=== PATIENT | female | born 1980 | race Caucasian/White ===

== ENCOUNTER 2017-01-01 11:16 | Emergency (ER) | payer OTHER ==
[2017-01-01 11:26] VITALS: TEMP 98; BMI 39.5
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
[2017-01-01] MEDS ORDERED: methylPREDNISolone NA SUCC 125 MG/2 ML VIAL IVPB ONE (12:09)
[2017-01-01] MEDS ORDERED: SODIUM CHLORIDE 1,000 ML IV STA (12:09)
[2017-01-01] MEDS ORDERED: methylPREDNISolone NA SUCC 125 MG/2 ML VIAL ONE (12:11)
[2017-01-01 12:34] LABS: BASOPHIL 0.2 % (0-2.0); EOSINOPHIL 1.3 % (0-4.5); MCH 27.6 pg (25.7-33.7); MCHC 32.8 g/dl (32.0-36.0); MEAN CELL VOLUME 84.1 fl (80-96); MEAN PLT VOLUME 7.7 fl (7.5-11.1); NEUTROPHILS 67.8 % (42.8-82.8); PLATELET COUNT 304 K/MM3 (134-434); RDW 13.8 % (11.6-15.6); WHITE BLOOD COUNT 11.8 K/mm3 (4.0-10.0)
[2017-01-01 13:10] LABS: ALBUMIN 3.2 g/dl (3.4-5.0); ANION GAP 5 (8-16); BILIRUBIN,TOTAL 0.3 mg/dL (0.2-1.0); CALCIUM 8.8 mg/dL (8.5-10.1); CO2 28 mmol/L (21-32); CREATININE 0.7 mg/dL (0.55-1.02); GLUCOSE,RANDOM 91 mg/dL (74-106); SGOT/AST 15 U/L (15-37); SGPT/ALT 20 U/L (12-78); TOT PROT 6.8 g/dl (6.4-8.2)
[2017-01-01 13:13] LABS: ALK PHOS 89 U/L (45-117)
[2017-01-01 14:38] VITALS: BP 110/62; PULSE 64
== END 2017-01-01 15:02 | disposition home or self-care (01) ==
LOC: JER 11:16
PROC: 3E033NZ Introduction of Analgesics, Hypnotics, Sedatives into Peripheral Vein, Percutaneous Approach (ICD-10-PCS; principal; 2017-01-01)
PROC: 3E033GC Introduction of Other Therapeutic Substance into Peripheral Vein, Percutaneous Approach (ICD-10-PCS; 2017-01-01)
PROC: 3E0337Z Introduction of Electrolytic and Water Balance Substance into Peripheral Vein, Percutaneous Approach (ICD-10-PCS; 2017-01-01)
DX: T78.40XA Allergy, unspecified, initial encounter (principal); X58.XXXA Exposure to other specified factors, initial encounter; J45.909 Unspecified asthma, uncomplicated; G40.909 Epilepsy, unspecified, not intractable, without status epilepticus; Z86.69 Personal history of other diseases of the nervous system and sense organs; Z91.013 Allergy to seafood; D64.9 Anemia, unspecified; F17.211 Nicotine dependence, cigarettes, in remission
CPT/HCPCS: 36415; 80053; 84702; 85025; 96361; 96374; 96375; 99282-25

== ENCOUNTER 2017-09-27 13:37 | Emergency (ER) | payer OTHER | END 2017-09-27 20:01 | disposition home or self-care (01) | LOC: JER 13:37 | PROC: 3E0333Z Introduction of Anti-inflammatory into Peripheral Vein, Percutaneous Approach (ICD-10-PCS; principal; 2017-09-27) | CPT/HCPCS: 36415; 74177-TC; 80053; 81003; 81015; 83735; 84100; 84703; 85025; 87086; 96374; 99283-25 ==

== ENCOUNTER 2018-12-12 10:09 | Emergency (ER) | payer OTHER ==
[2018-12-12 10:27] VITALS: BP 112/66; PULSE 87; TEMP 98.1; BMI 44.1
[2018-12-12] MEDS ORDERED: KETOROLAC TROMETHAMINE 60 MG/2 ML VIAL IM ONE (10:51)
[2018-12-12] MEDS ORDERED: KETOROLAC TROMETHAMINE 60 MG/2 ML VIAL ONE (10:55)
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
== END 2018-12-12 10:58 | disposition home or self-care (01) ==
LOC: JERFT 10:09
PROC: 3E0233Z Introduction of Anti-inflammatory into Muscle, Percutaneous Approach (ICD-10-PCS; principal; 2018-12-12)
DX: S39.012A Strain of muscle, fascia and tendon of lower back, initial encounter (principal); S16.1XXA Strain of muscle, fascia and tendon at neck level, initial encounter; S89.81XA Other specified injuries of right lower leg, initial encounter; V49.19XA Passenger injured in collision with other motor vehicles in nontraffic accident, initial encounter; Y92.414 Local residential or business street as the place of occurrence of the external cause; Y93.89 Activity, other specified; Y99.8 Other external cause status
CPT/HCPCS: 99282-25

== ENCOUNTER 2018-12-19 09:49 | Emergency (ER) | payer OTHER ==
[2018-12-19 09:53] VITALS: BP 154/82; PULSE 84; TEMP 98.3; BMI 44.1
[2018-12-19] MEDS ORDERED: KETOROLAC TROMETHAMINE 60 MG/2 ML VIAL IM ONE (10:25)
[2018-12-19] MEDS ORDERED: METHOCARBAMOL 500 MG TABLET PO ONE (10:25)
[2018-12-19] MEDS ORDERED: METHOCARBAMOL 500 MG TABLET ONE (10:32)
[2018-12-19] MEDS ORDERED: KETOROLAC TROMETHAMINE 60 MG/2 ML VIAL ONE (10:32)
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
== END 2018-12-19 11:44 | disposition home or self-care (01) ==
LOC: JERFT 09:49
PROC: 3E0233Z Introduction of Anti-inflammatory into Muscle, Percutaneous Approach (ICD-10-PCS; principal; 2018-12-19)
DX: M54.41 Lumbago with sciatica, right side (principal); G89.29 Other chronic pain; V43.52XA Car driver injured in collision with other type car in traffic accident, initial encounter; Y93.89 Activity, other specified; Y92.410 Unspecified street and highway as the place of occurrence of the external cause
CPT/HCPCS: 72100-TC-FY; 99282-25

== ENCOUNTER 2019-01-18 20:20 | Emergency (ER) | payer OTHER ==
[2019-01-18 20:31] VITALS: BP 99/71; PULSE 66; TEMP 98.5; BMI 44.1
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
--- NOTE | 2019-01-18 21:28 | PDOC ---
History of Present Illness - General Chief Complaint: Pain, Acute Stated Complaint: LT KNEE PAIN Time Seen by Provider: 01/18/19 20:28 - History of Present Illness Initial Comments: 01/18/19 21:26 38-year-old female with left knee pain she's on a narcotic pain medication and anti-inflammatory as well as a muscle relaxer presents for evaluation of a re- exacerbation of left knee pain without any precipitating traumatic event. Past History - Past Medical History Allergies/Adverse Reactions: Allergies Allergy/AdvReac Type Severity Reaction Status Date / Time shellfish derived Allergy Severe Hives Verified 01/18/19 20:31 Home Medications: Ambulatory Orders Cyclobenzaprine HCl [Flexeril 10 mg] 10 mg PO BID PRN 12/12/18 Cyclobenzaprine HCl [Flexeril 10 mg] 10 mg PO TID #9 tablet 12/12/18 Gabapentin [Neurontin -] 300 mg PO Q8H 12/12/18 Ibuprofen [Motrin -] 800 mg PO Q6H #30 tablet 12/12/18 Meloxicam [Mobic] 15 mg PO ASDIR 12/12/18 Tizanidine HCl [Zanaflex] 4 mg PO ASDIR 12/12/18 Ketorolac Tromethamine [Toradol] 10 mg PO Q6H PRN #28 tablet 12/19/18 Lidocaine 5% Patch [Lidoderm -] 1 patch TP DAILY #30 patch 12/19/18 Methocarbamol [Robaxin -] 750 mg PO Q8H PRN #20 tablet 12/19/18 Anemia: Yes Asthma: Yes Cancer: No Cardiac Disorders: No CVA: No COPD: No CHF: No Dementia: No Diabetes: No GI Disorders: No Disorders: No HTN: No Hypercholesterolemia: No Liver Disease: No Seizures: Yes (last one 2011) Thyroid Disease: No - Surgical History Abdominal Surgery: Yes (fibroids) Appendectomy: No Cardiac Surgery: No Cholecystectomy: Yes (07/14/2015) Lung Surgery: No Neurologic Surgery: No Orthopedic Surgery: Yes (miniscus repair L knee 2015, L3-L5 herniaectomy 2015) - Reproductive History (#): 4 Para: 4 - Immunization History Immunization Up to Date: Yes - Suicide/Smoking/Psychosocial Hx Smoking History: Current every day smoker Have you smoked in the past 12 months: Yes Number of Cigarettes Smoked Daily: 6 If you are a former smoker, when did you quit?: 07/2016 Information on smoking cessation initiated: No 'Breaking Loose' booklet given: 06/19/16 Hx Alcohol Use: No Drug/Substance Use Hx: No Substance Use Type: None Hx Substance Use Treatment: No Review of Systems - Review of Systems Constitutional: No: Fever Musculoskeletal: Yes: Joint Pain *Physical Exam - Vital Signs Last Vital Signs Temp Pulse Resp BP Pulse Ox 98.5 F 66 20 99/71 100 01/18/19 20:29 01/18/19 20:29 01/18/19 20:29 01/18/19 20:29 01/18/19 20:29 - Physical Exam Comments: 01/18/19 21:26 Knee skin color and temperature are normal. There is no palpable effusion. Range of motion is full and nonpainful. No lateral joint line tenderness.+MJLT No patellofemoral crepitation. No evidence of instability. Thigh and calf are soft and nontender. There are no gross sensory motor deficits. Medical Decision Making - Medical Decision Making 01/18/19 21:27 Has a known medial meniscal tear she is being seen by a local orthopedist and has follow-up in 4 days. We'll give her crutches nonweightbearing or weight- bearing as tolerated with f/u instructions *DC/Admit/Observation/Transfer Diagnosis at time of Disposition: Left knee pain Qualifiers: Chronicity: acute Qualified Code(s): M25.562 - Pain in left knee - Discharge Dispostion Disposition: HOME Condition at time of disposition: Stable Decision to Admit order: No - Referrals Referrals: Santi Toribio [Primary Care Provider] - Dionte Todd MD [Staff Physician] - - Patient Instructions Additional Instructions: Return to the emergency room for worsening symptoms. Follow-up with orthopedic surgery as scheduled. Weight-bear as tolerated with crutches - Post Discharge Activity
== END 2019-01-18 21:34 | disposition home or self-care (01) ==
LOC: JERFT 20:20
DX: J45.909 Unspecified asthma, uncomplicated (principal)
CPT/HCPCS: 99282-25

== ENCOUNTER 2019-02-01 15:19 | Emergency (ER) | payer OTHER ==
[2019-02-01] MEDS ORDERED: ALBUTEROL SO4 2.5/IPRATROPIUM 0.5 INH SOL 3 ML VIAL.NEB. NEB ONE ×4 (15:29→16:11)
--- NOTE | 2019-02-01 15:29 | PDOC ---
Rapid Medical Evaluation Chief Complaint: Asthma Time Seen by Provider: 02/01/19 15:28 Medical Evaluation: Allergies Allergy/AdvReac Type Severity Reaction Status Date / Time shellfish derived Allergy Severe Hives Verified 01/18/19 20:31 02/01/19 15:28 I have performed a brief in-person evaluation of this patient. The patient presents with a chief complaint of: Pertinent physical exam findings:stable and in NAD, non-focal I have ordered the following: duoneb The patient will proceed to the ED for further evaluation.
[2019-02-01 15:30] VITALS: BMI 44.1
[2019-02-01] MEDS ORDERED: DEXAMETHASONE LIQUID 0.5 MG/5 ML PO ONE (15:59)
[2019-02-01] MEDS ORDERED: DEXAMETHASONE SOD PHOSPHATE 10 MG/1 ML VIAL ONE (16:01)
--- NOTE | 2019-02-01 16:05 | PDOC ---
History of Present Illness - General Chief Complaint: Asthma Stated Complaint: ASTHMA Time Seen by Provider: 02/01/19 15:28 - History of Present Illness Initial Comments: 02/01/19 16:00 38 Old female with a past medical history significant for asthma presents for evaluation of asthma exacerbation times 2 days w/o systemic symptoms Past History - Past Medical History Allergies/Adverse Reactions: Allergies Allergy/AdvReac Type Severity Reaction Status Date / Time shellfish derived Allergy Severe Hives Verified 02/01/19 15:30 Home Medications: Ambulatory Orders Cyclobenzaprine HCl [Flexeril 10 mg] 10 mg PO BID PRN 12/12/18 Cyclobenzaprine HCl [Flexeril 10 mg] 10 mg PO TID #9 tablet 12/12/18 Gabapentin [Neurontin -] 300 mg PO Q8H 12/12/18 Ibuprofen [Motrin -] 800 mg PO Q6H #30 tablet 12/12/18 Meloxicam [Mobic] 15 mg PO ASDIR 12/12/18 Tizanidine HCl [Zanaflex] 4 mg PO ASDIR 12/12/18 Ketorolac Tromethamine [Toradol] 10 mg PO Q6H PRN #28 tablet 12/19/18 Lidocaine 5% Patch [Lidoderm -] 1 patch TP DAILY #30 patch 12/19/18 Methocarbamol [Robaxin -] 750 mg PO Q8H PRN #20 tablet 12/19/18 Anemia: Yes Asthma: Yes Cancer: No Cardiac Disorders: No CVA: No COPD: No CHF: No Dementia: No Diabetes: No GI Disorders: No Disorders: No HTN: No Hypercholesterolemia: No Liver Disease: No Seizures: Yes (last one 2011) Thyroid Disease: No - Surgical History Abdominal Surgery: Yes (fibroids) Appendectomy: No Cardiac Surgery: No Cholecystectomy: Yes (07/14/2015) Lung Surgery: No Neurologic Surgery: No Orthopedic Surgery: Yes (miniscus repair L knee 2015, L3-L5 herniaectomy 2015) - Reproductive History (#): 4 Para: 4 - Immunization History Immunization Up to Date: Yes - Suicide/Smoking/Psychosocial Hx Smoking History: Never smoked Have you smoked in the past 12 months: Yes Number of Cigarettes Smoked Daily: 6 If you are a former smoker, when did you quit?: 07/2016 'Breaking Loose' booklet given: 06/19/16 Hx Alcohol Use: No Drug/Substance Use Hx: No Substance Use Type: None Hx Substance Use Treatment: No Review of Systems - Review of Systems Respiratory: Yes: Cough, Wheezing *Physical Exam - Vital Signs Last Vital Signs Temp Pulse Resp BP Pulse Ox 98.5 F 99 H 26 H 119/74 100 02/01/19 15:27 02/01/19 15:27 02/01/19 15:27 02/01/19 15:27 02/01/19 15:27 - Physical Exam Comments: 02/01/19 16:01 HEAD: NC/AT EYES: Conjuntiva clear Ears: Canals and TM's normal NOSE: No d/c THROAT: Moist mucous membrances, oral pharanx clear, uvula midline NECK: Supple without adenopathy CARDIAC: S1 S2 LUNGS: decreased Sounds at the bases with mild wheezing diffusly ABDOMEN: Soft NT ND MS: Full ROM in all joints without edema NEUROLOGIC: No gross sensory or motor deficits, NVID SKIN: Normal color and temperature no lesions or rashes ED Treatment Course - Medications Given in the ED: ED Medications Discontinued Medications Generic Name Dose Route Start Last Admin Trade Name Freq PRN Reason Stop Dose Admin Albuterol/Ipratropium 1 amp 02/01/19 15:29 02/01/19 15:35 Duoneb - NEB 02/01/19 15:30 1 amp ONCE ONE Administration Medical Decision Making - Medical Decision Making 02/01/19 16:59 CTA after duo nebs and decadron, will have pt f/u with pulmonology *DC/Admit/Observation/Transfer Diagnosis at time of Disposition: Asthma exacerbation - Discharge Dispostion Disposition: HOME Condition at time of disposition: Stable Decision to Admit order: No - Referrals Referrals: Santi Toribio [Primary Care Provider] - Santi Neri MD, MD [Staff Physician] - - Patient Instructions Additional Instructions: Return to the emergency room for worsening symptoms. Please follow-up with pulmonology in one to 2 days without fail for further evaluation and treatment options. Continue with your regular asthma medication at home. - Post Discharge Activity
[2019-02-01] MEDS: ALBUTEROL SO4 2.5/IPRATROPIUM 0.5 INH SOL 3 ML VIAL.NEB. NEB SCH ×3 (16:07→16:49)
[2019-02-01 17:05] VITALS: BP 131/66; PULSE 95; TEMP 98.1
== END 2019-02-01 17:10 | disposition home or self-care (01) ==
LOC: JERFT 15:19
PROC: 3E0F7GC Introduction of Other Therapeutic Substance into Respiratory Tract, Via Natural or Artificial Opening (ICD-10-PCS; principal; 2019-02-01)
PROC: 3E0F7GC Introduction of Other Therapeutic Substance into Respiratory Tract, Via Natural or Artificial Opening (ICD-10-PCS; 2019-02-01)
DX: J45.901 Unspecified asthma with (acute) exacerbation (principal)
CPT/HCPCS: 99281-25

== ENCOUNTER 2019-03-01 05:22 | Day surgery (SDC) | payer OTHER ==
[2019-02-28 11:24] VITALS: BMI 45.4
--- NOTE | 2019-03-01 08:20 | HP ---
[facility]ellite [facility] - Chief Complaint Chief Complaint: left knee pain - Past Medical History Allergies/Adverse Reactions: Allergies Allergy/AdvReac Type Severity Reaction Status Date / Time shellfish derived Allergy Severe Hives Verified 02/28/19 11:31 No Known Drug Allergies Allergy Verified 02/28/19 11:31 Pulmonary: Yes: Asthma ...LMP: 02/27/19 - Current Medications Current Medications: Home Medications Medication Instructions Recorded Albuterol 0.083% Nebulizer Cortney 1 neb NEB PRN PRN 02/28/19 [Ventolin 0.083% Nebulizer Soln -] Albuterol Sulfate Inhaler - 1 - 2 inh PO PRN PRN 02/28/19 [Ventolin HFA Inhaler -] Mv-Mn/Iron/Folic Acid/Herb 190 1 each PO WEEKLY 02/28/19 [Vitamin D3 Complete Caplet] Hydrocodone/Acetaminophen 1 each PO Q6H #20 tablet MDD 4 03/01/19 [Hydrocodone-Acetamin 5-325 mg] Satellite Physical Exam - Physical Examination General Appearance: Well Nourished, Well Developed, Alert & Oriented x3 ENT: Clear Lung: Normal air movement Heart: Regular rate & rhythm Extremities: Other (left knee- + swelling, + ttp, dec rom , + mcmurrays, nvi, MRi + mt) Neurological: Intact, Alert, Oriented Satellite Impression/Plan - Impression/Plan Impression: left knee internal derangement Operative Procedure: left knee arthroscopy Date to be Performed: 03/01/19
[2019-03-01] MEDS ORDERED: ONDANSETRON 4 MG/2 ML VIAL IVPUSH PRN (11:44)
[2019-03-01] MEDS ORDERED: oxyCODONE HCL 5 MG TABLET PO PRN ×2 (11:44)
[2019-03-01] MEDS ORDERED: LACTATED RINGERS SOLUTION 1,000 ML IV SCH (11:45)
[2019-03-01] MEDS ORDERED: ceFAZolin SODIUM 1 GM VIAL IVPB ONE (14:00)
--- NOTE | 2019-03-01 14:40 | OP ---
Operative Note - Note: Operative Date: 03/01/19 Pre-Operative Diagnosis: left knee lateral meniscus tear Operation: left knee arthroscopy, lateral meniscectomy, debridement chondroplasty Post-Operative Diagnosis: Same as Pre-op Surgeon: Dionte Todd Anesthesiologist/FILLER IN: Johanna Troy Anesthesia: General, Local Specimens Removed: shavings Estimated Blood Loss (mls): 0 Drains, Volume Out (mls): 0 Blood Volume Replaced (mls): 0 Fluid Volume Replaced (mls): 500 Operative Report Dictated: Yes
[2019-03-01] MEDS ORDERED: BUPIVACAINE HCL/PF 0.5% (5 MG/ML) 30 ML VIAL IJ ONE (15:30)
[2019-03-01] MEDS ORDERED: ACETAMINOPHEN 1000 MG/100 ML VIAL (NON FORMULARY) IVPB ONE ×2 (15:30→15:33)
[2019-03-01] MEDS ORDERED: oxyCODONE HCL 5 MG TABLET ONE (16:13)
[2019-03-01] MEDS ORDERED: oxyCODONE HCL 5 MG TABLET PO ONE (16:15)
[2019-03-01 16:25] VITALS: TEMP 98
[2019-03-01 17:41] VITALS: BP 100/65; PULSE 65
--- NOTE | 2019-03-01 22:08 | OP ---
DATE OF OPERATION: 03/01/2019 PREOPERATIVE DIAGNOSES: Left knee pain, lateral meniscus tear. POSTOPERATIVE DIAGNOSES: Left knee pain, lateral meniscus tear, hypertrophic fat pad. PROCEDURE: Left knee arthroscopy, partial lateral meniscectomy, and debridement chondroplasty. SURGEON: Dontae Gutierrez MD ASSISTANTS: None. ANESTHESIOLOGIST: Johanna Sanderson, REF-CRN ANESTHESIA: LMA, local injection of 20 mL of 0.5% Marcaine. DRAINS: None. COMPLICATIONS: None. SPECIMEN: Shavings. BLOOD GIVEN: None. FLUID REPLACEMENT: Plasma-Lyte 500 mL. BLOOD LOSS: None. COMPLICATIONS: None. This patient is a 38-year-old female with a preoperative diagnosis of left knee pain, lateral meniscus tear, and possible osteoarthritis. After understanding the potential risks, complications, alternatives, and benefits of surgery versus nonsurgical treatment, the patient elected to undergo this procedure. The patient was brought to the operating room. Peripheral IV placed and IV sedation given. Next, 3 g of IV Ancef were given as the patient was 290 pounds. Ample padding was placed on the left thigh including a Styrofoam ring. Left lower extremity was prepped and draped in sterile fashion, elevated, exsanguinated with an Esmarch bandage. Tourniquet inflated to 300 mmHg. A superomedial outflow portal was established. A lateral portal was established and arthroscope introduced into the joint under direct visualization using a spinal needle and medial portal was established. The patient's medial compartment looked good. There was no osteoarthritis, and the medial meniscus looked good. Photographs were taken. In the intercondylar notch, the ACL looked good, but the patient had a tremendous amount of synovitis and hypertrophic fat pad. This was debrided with a curved shaver. Next, the lateral compartment was directly visualized. The patient's lateral meniscus was seen to have multiple degenerative-type, small radial tears in the body and posterior horn. This was debrided with the curved shaver. Photographs were taken before, during, and after. The lateral femoral condyle and lateral tibial plateau both looked good and free of osteoarthritis. There were some small areas of grade 1 chondromalacia of the lateral tibial plateau. Next, our attention turned to the patellofemoral joint. The patient had additional excessive hypertrophic, somewhat fibrotic, Hoffa fat pad. This was debrided. I could then directly visualize the patellofemoral joint. There were some notching and small craters in the femoral trochlea but overall looked good and the patella looked good. Then, the area was copiously irrigated and washed out. All excess saline and debris were removed. The arthroscopy portals were closed with 3-0 nylon sutures; 20 mL of 0.5% Marcaine were introduced into the joint. The area was then washed and dried, covered with Xeroform gauze, 4 x 4 gauze, Webril, and two 6-inch Rashad bandages. The tourniquet was taken down after total tourniquet time of 13 minutes. There were no complications during the case. The patient tolerated the procedure quite well and was brought to the ambulatory recovery room in stable condition. DONTAE GUTIERREZ M.D. [id number]
--- NOTE | 2019-03-03 19:02 | PATH ---
Surgical Pathology Report Patient Name: BENNIE LIANG Med. Rec. #: [id number] /Age/Gender: 1980 (Age: 38) / F Account: [id number] Location: [facility] SURGICAL Taken: 03/01/2019 Received: 03/02/2019 Reported: 03/03/2019 Physicians: Dionte Todd M.D. Specimen(s) Received LEFT KNEE SHAVINGS Clinical History Left knee tear Final Diagnosis KNEE SHAVINGS, LEFT, ARTHROSCOPY: FRAGMENTS OF CARTILAGE, DENSE FIBROCONNECTIVE TISSUE, ADIPOSE TISSUE, AND SYNOVIUM. Electronically Signed Millicent Gallo M.D. Gross Description Received in formalin, labeled "left knee shavings," is a 2 x 1 x 0.3 cm. aggregate of younger-yellow soft tissue fragments. A sales training representative portion is submitted in one cassette. MLSZ/03/02/2019 [email or web address]/03/02/2019
== END 2019-03-01 17:30 | disposition home or self-care (01) ==
LOC: JASU-SURG 05:22
PROVIDERS: ATTEND Orthopaedic Surgery
PROC: 0SBD4ZZ Excision of Left Knee Joint, Percutaneous Endoscopic Approach (ICD-10-PCS; 2019-03-01)
PROC: 0SBD4ZZ Excision of Left Knee Joint, Percutaneous Endoscopic Approach (ICD-10-PCS; principal; 2019-03-01 11:30)
DX: S83.282A Other tear of lateral meniscus, current injury, left knee, initial encounter (principal); M25.562 Pain in left knee; M79.4 Hypertrophy of (infrapatellar) fat pad; M22.42 Chondromalacia patellae, left knee; X58.XXXA Exposure to other specified factors, initial encounter; Y93.9 Activity, unspecified; Y92.9 Unspecified place or not applicable
CPT/HCPCS: 29881; G0289; 84703; 88304-TC; 94760; J0131

== ENCOUNTER 2021-04-30 00:57 | Inpatient (IN) | payer OTHER ==
[2021-04-30] MEDS ORDERED: methylPREDNISolone NA SUCC 125 MG/2 ML VIAL ONE (01:13)
[2021-04-30 01:14] VITALS: BMI 43.8
[2021-04-30] MEDS ORDERED: MAGNESIUM SULFATE IN WATER 2 GM/50 ML IVPB IVPB ONE (01:14)
[2021-04-30] MEDS ORDERED: MAGNESIUM SULF 50% (8.12 MEQ/2 ML-1 GM VIAL) IVPB ONE (01:16)
[2021-04-30] MEDS ORDERED: methylPREDNISolone NA SUCC 125 MG/2 ML VIAL IVPB ONE (01:16)
[2021-04-30] MEDS ORDERED: ALBUTEROL SO4 2.5/IPRATROPIUM 0.5 INH SOL 3 ML VIAL.NEB. NEB ONE ×3 (01:16→05:59)
[2021-04-30 02:33] LABS: HEMATOCRIT 36.5 % (32.4-45.2); HEMOGLOBIN 12.3 GM/dL (10.7-15.3); MCH 27.6 pg (25.7-33.7); MCHC 33.6 g/dl (32.0-36.0); MEAN CELL VOLUME 82.1 fl (80-96); MEAN PLT VOLUME 7.7 fl (7.5-11.1); PLATELET COUNT 309 10^3/uL (134-434); RBC 4.44 M/mm3 (3.60-5.2); RDW 14.1 % (11.6-15.6); WHITE BLOOD COUNT 14.3 K/mm3 (4.0-10.0)
[2021-04-30 02:45] LABS: INR 0.99 (0.83-1.09); PROTHROMBIN TIME (PATIENT) 11.6 SEC (9.7-13.0)
[2021-04-30] MEDS ORDERED: ALBUTEROL SO4 0.083% IH SOL 2.5 MG/3 ML VIAL.NEB. NEB ONE ×3 (02:48→08:16)
[2021-04-30 02:51] LABS: CHLORIDE 109 mmol/L (98-107); SODIUM 142 mmol/L (136-145)
[2021-04-30 02:53] LABS: CALCIUM 8.5 mg/dL (8.5-10.1)
[2021-04-30 02:54] LABS: ANION GAP 12 MMOL/L (8-16); CO2 21 mmol/L (21-32); GLUCOSE,RANDOM 129 mg/dL (74-106); MAGNESIUM 2.3 mg/dL (1.8-2.4)
[2021-04-30 02:57] LABS: CREATININE 0.9 mg/dL (0.55-1.3); SGOT/AST 14 U/L (15-37); SGPT/ALT 19 U/L (13-61)
[2021-04-30 02:58] LABS: BILIRUBIN,TOTAL 0.2 mg/dL (0.2-1)
[2021-04-30 02:59] LABS: TOT PROT 6.4 g/dl (6.4-8.2)
[2021-04-30 03:00] LABS: ALK PHOS 98 U/L (45-117)
[2021-04-30] MEDS: ALBUTEROL SO4 0.083% IH SOL 2.5 MG/3 ML VIAL.NEB. NEB SCH ×2 (03:15→04:00)
[2021-04-30] MEDS ORDERED: POLYETHYLENE GLYCOL (HEALTHYLAX) 3350 17 GM PACKET PO PRN (04:02)
[2021-04-30] MEDS ORDERED: ALBUTEROL SO4 0.083% IH SOL 2.5 MG/3 ML VIAL.NEB. NEB PRN ×2 (04:02→06:20)
[2021-04-30] MEDS: ENOXAPARIN NA (PORCINE) 40 MG/0.4 ML DISP.SYRIN SQ SCH (09:35)
[2021-04-30] MEDS: PANTOPRAZOLE 40 MG TABLET PO SCH (09:35)
[2021-04-30] MEDS: ACETAMINOPHEN 325 MG TABLET (FP) PO PRN ×2 (15:24→21:43)
[2021-04-30] MEDS: ALBUTEROL SO4 2.5/IPRATROPIUM 0.5 INH SOL 3 ML VIAL.NEB. NEB SCH ×2 (16:55→20:45)
[2021-04-30] MEDS: methylPREDNISolone NA SUCC 40 MG/1 ML VIAL IVPUSH SCH (18:19)
[2021-04-30] MEDS: MONTELUKAST NA 10 MG TABLET PO SCH (21:38)
[2021-05-01] MEDS: methylPREDNISolone NA SUCC 40 MG/1 ML VIAL IVPUSH SCH ×3 (01:11→17:02)
[2021-05-01] MEDS ORDERED: KETOROLAC TROMETHAMINE 30 MG/1 ML VIAL IM ONE (01:19)
[2021-05-01 08:48] LABS: HEMATOCRIT 37.9 % (32.4-45.2); HEMOGLOBIN 12.4 GM/dL (10.7-15.3); MCH 27.8 pg (25.7-33.7); MCHC 32.7 g/dl (32.0-36.0); MEAN CELL VOLUME 84.8 fl (80-96); MEAN PLT VOLUME 8.2 fl (7.5-11.1); PLATELET COUNT 352 10^3/uL (134-434); RBC 4.47 M/mm3 (3.60-5.2); RDW 14.3 % (11.6-15.6); WHITE BLOOD COUNT 27.4 K/mm3 (4.0-10.0)
[2021-05-01] MEDS: ALBUTEROL SO4 2.5/IPRATROPIUM 0.5 INH SOL 3 ML VIAL.NEB. NEB SCH ×4 (09:00→20:40)
[2021-05-01] MEDS: PANTOPRAZOLE 40 MG TABLET PO SCH (09:13)
[2021-05-01] MEDS: ENOXAPARIN NA (PORCINE) 40 MG/0.4 ML DISP.SYRIN SQ SCH (09:13)
[2021-05-01 09:21] LABS: BLOOD UREA NITROGEN 9.6 mg/dL (7-18)
[2021-05-01 09:24] LABS: CREATININE 0.7 mg/dL (0.55-1.3)
[2021-05-01] MEDS: MONTELUKAST NA 10 MG TABLET PO SCH (21:31)
[2021-05-02] MEDS: methylPREDNISolone NA SUCC 40 MG/1 ML VIAL IVPUSH SCH ×2 (01:49→10:51)
[2021-05-02 07:07] VITALS: BP 109/53; TEMP 98.2
[2021-05-02] MEDS: ALBUTEROL SO4 2.5/IPRATROPIUM 0.5 INH SOL 3 ML VIAL.NEB. NEB SCH ×2 (08:46→11:05)
[2021-05-02 08:57] LABS: HEMATOCRIT 36.6 % (32.4-45.2); HEMOGLOBIN 12.1 GM/dL (10.7-15.3); MCH 27.5 pg (25.7-33.7); MCHC 33.1 g/dl (32.0-36.0); MEAN CELL VOLUME 83.1 fl (80-96); MEAN PLT VOLUME 8.1 fl (7.5-11.1); PLATELET COUNT 328 10^3/uL (134-434); RBC 4.41 M/mm3 (3.60-5.2); RDW 14.6 % (11.6-15.6); WHITE BLOOD COUNT 22.7 K/mm3 (4.0-10.0)
[2021-05-02 09:23] LABS: CALCIUM 8.9 mg/dL (8.5-10.1)
[2021-05-02 09:24] LABS: ALBUMIN 3.2 g/dl (3.4-5.0); BLOOD UREA NITROGEN 14.4 mg/dL (7-18)
[2021-05-02 09:27] LABS: CREATININE 0.7 mg/dL (0.55-1.3)
[2021-05-02 09:28] LABS: BILIRUBIN,TOTAL 0.2 mg/dL (0.2-1)
[2021-05-02 09:29] LABS: TOT PROT 6.7 g/dl (6.4-8.2)
[2021-05-02] MEDS: PANTOPRAZOLE 40 MG TABLET PO SCH (10:51)
[2021-05-02] MEDS: ENOXAPARIN NA (PORCINE) 40 MG/0.4 ML DISP.SYRIN SQ SCH (10:52)
[2021-05-02 11:40] VITALS: PULSE 82
[2021-05-02 11:43] LABS: ANISOCYTOSIS 1+; MACROCYTOSIS 0; PLATELET ESTIMATE NORMAL; TOXIC GRANULATION 1+
[2021-05-02] MEDS ORDERED: predniSONE 20 MG TABLET (UD) PO SCH (12:45)
== END 2021-05-02 15:05 | disposition home or self-care (01) | DRG 141 ==
LOC: JER 00:57 → JERBED 01:13 → J7W 09:06
PROVIDERS: ATTEND Family Medicine
DX: J45.41 Moderate persistent asthma with (acute) exacerbation (principal); E66.01 Morbid (severe) obesity due to excess calories; Z68.42 Body mass index [BMI] 45.0-49.9, adult
CPT/HCPCS: 36415; 71045-TC-FY; 80048; 80053; 83735; 84484; 84703; 85025; 85027; 85610; 93005; 93010; 94150; 94640; 94761; 99291; C9803; U0003; U0005

== ENCOUNTER 2021-10-15 10:31 | Inpatient (IN) | payer OTHER ==
[2021-10-15] MEDS ORDERED: ALBUTEROL SO4 2.5/IPRATROPIUM 0.5 INH SOL 3 ML VIAL.NEB. NEB ONE ×5 (11:10→21:07)
[2021-10-15] MEDS ORDERED: methylPREDNISolone NA SUCC 125 MG/2 ML VIAL ONE (11:19)
[2021-10-15 11:33] LABS: BASO % 0.4 % (0-2.0); HEMOGLOBIN 12.6 GM/dL (10.7-15.3); LYMPH % 12.9 % (8-40); MCH 27.2 pg (25.7-33.7); MCHC 33.3 g/dl (32.0-36.0); MEAN CELL VOLUME 81.7 fl (80-96); MEAN PLT VOLUME 7.2 fl (7.5-11.1); MONO % 3.4 % (3.8-10.2); NEUT % 81.3 % (42.8-82.8); PLATELET COUNT 309 10^3/uL (134-434); RBC 4.65 M/mm3 (3.60-5.2); RDW 14.6 % (11.6-15.6); WHITE BLOOD COUNT 15.1 K/mm3 (4.0-10.0)
[2021-10-15] MEDS ORDERED: methylPREDNISolone NA SUCC 125 MG/2 ML VIAL IVPUSH ONE (11:33)
[2021-10-15] MEDS ORDERED: MAGNESIUM SULF 50% (8.12 MEQ/2 ML-1 GM VIAL) IVPB ONE (11:34)
[2021-10-15] MEDS ORDERED: MAGNESIUM SULFATE IN WATER 2 GM/50 ML IVPB IVPB ONE (11:39)
[2021-10-15 11:56] LABS: CALCIUM 8.8 mg/dL (8.5-10.1)
[2021-10-15 11:57] LABS: ALBUMIN 3.5 g/dl (3.4-5.0)
[2021-10-15 12:00] LABS: CREATININE 0.7 mg/dL (0.55-1.3)
[2021-10-15 12:02] LABS: BILIRUBIN,TOTAL 0.9 mg/dL (0.2-1); TOT PROT 6.9 g/dl (6.4-8.2)
[2021-10-15 12:10] LABS: VENOUS BASE EXCESS -1.7 mmol/L (-2-2); VENOUS O2 SATURATION 83.8 % (70-80); VENOUS PCO2 44.4 mmHg (38-52); VENOUS PH 7.352 (7.310-7.410)
[2021-10-15] MEDS ORDERED: methylPREDNISolone NA SUCC 40 MG/1 ML VIAL ONE ×2 (16:35→21:07)
[2021-10-15] MEDS: ALBUTEROL SO4 2.5/IPRATROPIUM 0.5 INH SOL 3 ML VIAL.NEB. NEB SCH ×2 (16:37→20:25)
[2021-10-15] MEDS: methylPREDNISolone NA SUCC 40 MG/1 ML VIAL IVPUSH SCH ×2 (16:37→20:25)
[2021-10-15] MEDS ORDERED: MONTELUKAST NA 10 MG TABLET ONE (22:50)
[2021-10-15] MEDS ORDERED: HEPARIN NA (PORCINE) 5,000 UNITS/ML 1ML VIAL ONE (22:50)
[2021-10-15] MEDS: HEPARIN NA (PORCINE) 5,000 UNITS/ML 1ML VIAL SQ SCH (22:56)
[2021-10-15] MEDS: MONTELUKAST NA 10 MG TABLET PO SCH (22:56)
[2021-10-16] MEDS: ACETAMINOPHEN 325 MG TABLET (FP) PO PRN ×2 (00:23→09:56)
[2021-10-16 00:57] VITALS: BMI 45.1
[2021-10-16] MEDS: methylPREDNISolone NA SUCC 40 MG/1 ML VIAL IVPUSH SCH ×4 (02:36→21:31)
[2021-10-16] MEDS: ALBUTEROL SO4 2.5/IPRATROPIUM 0.5 INH SOL 3 ML VIAL.NEB. NEB SCH ×4 (07:20→20:10)
[2021-10-16] MEDS: HEPARIN NA (PORCINE) 5,000 UNITS/ML 1ML VIAL SQ SCH ×2 (09:38→21:31)
[2021-10-16] MEDS: PANTOPRAZOLE 40 MG TABLET PO SCH (09:38)
[2021-10-16] MEDS ORDERED: ALBUTEROL SO4 0.083% IH SOL 2.5 MG/3 ML VIAL.NEB. NEB PRN (10:04)
[2021-10-16] MEDS ORDERED: FLUTICASONE/UMECLIDIN/VILANTER(200-62.5-25 TRELEGY ELLIPTA) INAHLER IH SCH (10:15)
[2021-10-16 10:21] LABS: HEMATOCRIT 38.3 % (32.4-45.2); HEMOGLOBIN 12.4 GM/dL (10.7-15.3); MCHC 32.4 g/dl (32.0-36.0); MEAN CELL VOLUME 83.3 fl (80-96); MEAN PLT VOLUME 8.2 fl (7.5-11.1); PLATELET COUNT 355 10^3/uL (134-434); RBC 4.59 M/mm3 (3.60-5.2); RDW 14.7 % (11.6-15.6); WHITE BLOOD COUNT 26.7 K/mm3 (4.0-10.0)
[2021-10-16 10:47] LABS: ALBUMIN 3.2 g/dl (3.4-5.0); BLOOD UREA NITROGEN 9.5 mg/dL (7-18); CALCIUM 8.8 mg/dL (8.5-10.1); MAGNESIUM 2.3 mg/dL (1.8-2.4)
[2021-10-16 10:50] LABS: CREATININE 0.9 mg/dL (0.55-1.3)
[2021-10-16 10:52] LABS: BILIRUBIN,TOTAL 0.3 mg/dL (0.2-1); TOT PROT 6.8 g/dl (6.4-8.2)
[2021-10-16 11:21] LABS: ANISOCYTOSIS 0; HELMET CELLS 0; HOWELL-JOLLY BODIES 0; MACROCYTOSIS 0; OVALOCYTE 0; ROULEAU 0; SICKELED CELLS 0; TARGET CELLS 0; TEAR DROP CELLS 0; TOXIC GRANULATION 0
[2021-10-16] MEDS: BUDESONIDE/FORMETEROL FUMARATE 160/4.5 mcg INHALER IH SCH ×2 (11:26→21:31)
[2021-10-16] MEDS: ACETAMINOPHEN/CAFFEINE/BUTALBITAL 1 TAB PO PRN (14:37)
[2021-10-16] MEDS: MONTELUKAST NA 10 MG TABLET PO SCH (21:31)
[2021-10-17] MEDS: ACETAMINOPHEN/CAFFEINE/BUTALBITAL 1 TAB PO PRN (00:58)
[2021-10-17] MEDS: methylPREDNISolone NA SUCC 40 MG/1 ML VIAL IVPUSH SCH ×4 (03:04→21:34)
[2021-10-17] MEDS: ALBUTEROL SO4 2.5/IPRATROPIUM 0.5 INH SOL 3 ML VIAL.NEB. NEB SCH ×4 (07:50→19:44)
[2021-10-17] MEDS: PANTOPRAZOLE 40 MG TABLET PO SCH (09:06)
[2021-10-17] MEDS: HEPARIN NA (PORCINE) 5,000 UNITS/ML 1ML VIAL SQ SCH ×2 (09:06→21:35)
[2021-10-17] MEDS: BUDESONIDE/FORMETEROL FUMARATE 160/4.5 mcg INHALER IH SCH ×2 (09:10→21:40)
[2021-10-17] MEDS: MONTELUKAST NA 10 MG TABLET PO SCH (21:34)
[2021-10-18] MEDS: methylPREDNISolone NA SUCC 40 MG/1 ML VIAL IVPUSH SCH ×4 (02:55→21:17)
[2021-10-18] MEDS: ALBUTEROL SO4 2.5/IPRATROPIUM 0.5 INH SOL 3 ML VIAL.NEB. NEB SCH ×4 (08:50→20:16)
[2021-10-18] MEDS: PANTOPRAZOLE 40 MG TABLET PO SCH (10:00)
[2021-10-18] MEDS: HEPARIN NA (PORCINE) 5,000 UNITS/ML 1ML VIAL SQ SCH ×2 (10:01→21:19)
[2021-10-18] MEDS: BUDESONIDE/FORMETEROL FUMARATE 160/4.5 mcg INHALER IH SCH ×2 (10:02→21:20)
[2021-10-18] MEDS: MONTELUKAST NA 10 MG TABLET PO SCH (21:20)
[2021-10-18] MEDS: ACETAMINOPHEN 325 MG TABLET (FP) PO PRN (21:26)
[2021-10-19] MEDS: methylPREDNISolone NA SUCC 40 MG/1 ML VIAL IVPUSH SCH ×3 (02:45→14:34)
[2021-10-19] MEDS: ALBUTEROL SO4 2.5/IPRATROPIUM 0.5 INH SOL 3 ML VIAL.NEB. NEB SCH ×3 (08:30→16:22)
[2021-10-19] MEDS: HEPARIN NA (PORCINE) 5,000 UNITS/ML 1ML VIAL SQ SCH (09:53)
[2021-10-19] MEDS: PANTOPRAZOLE 40 MG TABLET PO SCH (09:53)
[2021-10-19] MEDS: BUDESONIDE/FORMETEROL FUMARATE 160/4.5 mcg INHALER IH SCH (10:00)
[2021-10-19 10:40] LABS: HEMATOCRIT 39.3 % (32.4-45.2); HEMOGLOBIN 13.1 GM/dL (10.7-15.3); MCH 27.4 pg (25.7-33.7); MCHC 33.3 g/dl (32.0-36.0); MEAN CELL VOLUME 82.3 fl (80-96); MEAN PLT VOLUME 8.3 fl (7.5-11.1); PLATELET COUNT 287 10^3/uL (134-434); RBC 4.78 M/mm3 (3.60-5.2); RDW 14.3 % (11.6-15.6); WHITE BLOOD COUNT 19.2 K/mm3 (4.0-10.0)
[2021-10-19 11:22] LABS: ANISOCYTOSIS 3+; MACROCYTOSIS 0
[2021-10-19 12:21] VITALS: PULSE 66
[2021-10-19 13:57] VITALS: BP 137/73; TEMP 98.4
[2021-10-20] MEDS ORDERED: predniSONE 20 MG TABLET (UD) PO SCH (10:00)
== END 2021-10-19 16:52 | disposition home or self-care (01) | DRG 141 ==
LOC: JER 10:31 → JERBED 12:43 → J6S 23:53
PROVIDERS: ADMIT Family Medicine; ATTEND Family Medicine
DX: J45.901 Unspecified asthma with (acute) exacerbation (principal); E66.01 Morbid (severe) obesity due to excess calories; Z68.42 Body mass index [BMI] 45.0-49.9, adult; G43.909 Migraine, unspecified, not intractable, without status migrainosus; D72.829 Elevated white blood cell count, unspecified; G47.33 Obstructive sleep apnea (adult) (pediatric); R09.02 Hypoxemia
CPT/HCPCS: 0241U-QW; 36415; 71045-TC-FY; 80053; 82803; 83735; 84443; 85025; 94150; 94640; 99285-25; C9803-CS; J1644; U0003; U0005

== ENCOUNTER 2021-12-12 09:31 | Emergency (ER) | payer OTHER ==
[2021-12-12 09:47] VITALS: BP 113/62; PULSE 77; TEMP 98.6; BMI 45.3
[2021-12-12] MEDS ORDERED: diphenhydrAMINE HCL 25 MG CAPSULE (FP) PO ONE ×2 (09:57→10:19)
[2021-12-12] MEDS ORDERED: FAMOTIDINE 20 MG TABLET PO ONE (09:57)
[2021-12-12] MEDS ORDERED: predniSONE 20 MG TABLET (UD) PO ONE (09:57)
[2021-12-12] MEDS ORDERED: predniSONE 20 MG TABLET (UD) ONE (10:20)
[2021-12-12] MEDS ORDERED: FAMOTIDINE 20 MG TABLET ONE (10:20)
== END 2021-12-12 11:23 | disposition home or self-care (01) ==
LOC: JERFT 09:31
DX: H05.223 Edema of bilateral orbit (principal)
CPT/HCPCS: 99283-25

== ENCOUNTER 2022-01-17 12:56 | Observation (INO) | payer OTHER ==
[2022-01-17 13:08] VITALS: BMI 30.4
[2022-01-17] MEDS ORDERED: ASPIRIN 81 MG CHEWABLE TABLETS PO ONE (13:40)
[2022-01-17] MEDS ORDERED: ASPIRIN 81 MG CHEWABLE TABLETS ONE ×2 (13:46→13:49)
[2022-01-17] MEDS ORDERED: ACETAMINOPHEN 1000 MG/100 ML BAG IVPB ONE (15:10)
[2022-01-17 15:12] LABS: BASO % 0.2 % (0-2.0); EOS % 1.9 % (0-4.5); HEMOGLOBIN 12.4 GM/dL (10.7-15.3); LYMPH % 25.7 % (8-40); MCH 27.6 pg (25.7-33.7); MCHC 33.6 g/dl (32.0-36.0); MEAN CELL VOLUME 82.1 fl (80-96); MEAN PLT VOLUME 7.8 fl (7.5-11.1); MONO % 5.1 % (3.8-10.2); NEUT % 67.1 % (42.8-82.8); PLATELET COUNT 321 10^3/uL (134-434); RBC 4.51 M/mm3 (3.60-5.2); RDW 14.6 % (11.6-15.6); WHITE BLOOD COUNT 14.7 K/mm3 (4.0-10.0)
[2022-01-17] MEDS ORDERED: ACETAMINOPHEN INJECTION 100 ML IVPB ONE (15:17)
[2022-01-17 15:22] LABS: INR 1.03 (0.83-1.09); PROTHROMBIN TIME (PATIENT) 11.9 SEC (9.7-13.0)
[2022-01-17 15:24] LABS: ACTIVATED PTT 26.8 SECONDS (25.2-36.5); CALCIUM 8.4 mg/dL (8.5-10.1)
[2022-01-17 15:25] LABS: ALBUMIN 3.3 g/dl (3.4-5.0); BLOOD UREA NITROGEN 9.6 mg/dL (7-18); MAGNESIUM 2.1 mg/dL (1.8-2.4)
[2022-01-17 15:28] LABS: CREATININE 0.7 mg/dL (0.55-1.3)
[2022-01-17 15:29] LABS: BILIRUBIN,TOTAL 0.4 mg/dL (0.2-1); TOT PROT 6.6 g/dl (6.4-8.2)
[2022-01-17 15:33] LABS: N-TERMINAL BNP 21.6 pg/ml (5-125)
[2022-01-17] MEDS: BUDESONIDE/FORMETEROL FUMARATE 160/4.5 mcg INHALER IH SCH (21:45)
[2022-01-17] MEDS: HEPARIN NA (PORCINE) 5,000 UNITS/ML 1ML VIAL SQ SCH (21:46)
[2022-01-18] MEDS: HEPARIN NA (PORCINE) 5,000 UNITS/ML 1ML VIAL SQ SCH ×3 (06:34→22:08)
[2022-01-18 07:27] LABS: BASO % 0.3 % (0-2.0); EOS % 2.9 % (0-4.5); HEMATOCRIT 37.8 % (32.4-45.2); HEMOGLOBIN 12.6 GM/dL (10.7-15.3); LYMPH % 27.5 % (8-40); MCH 27.6 pg (25.7-33.7); MCHC 33.4 g/dl (32.0-36.0); MEAN CELL VOLUME 82.6 fl (80-96); MEAN PLT VOLUME 7.6 fl (7.5-11.1); MONO % 4.6 % (3.8-10.2); NEUT % 64.7 % (42.8-82.8); PLATELET COUNT 285 10^3/uL (134-434); RBC 4.57 M/mm3 (3.60-5.2); RDW 14.6 % (11.6-15.6); WHITE BLOOD COUNT 11.5 K/mm3 (4.0-10.0)
[2022-01-18 07:30] LABS: CALCIUM 8.1 mg/dL (8.5-10.1)
[2022-01-18 07:31] LABS: BLOOD UREA NITROGEN 8.4 mg/dL (7-18)
[2022-01-18 07:34] LABS: CREATININE 0.7 mg/dL (0.55-1.3)
[2022-01-18 07:35] LABS: TOT PROT 6.2 g/dl (6.4-8.2)
[2022-01-18 07:36] LABS: BILIRUBIN,TOTAL 0.2 mg/dL (0.2-1)
[2022-01-18] MEDS: BUDESONIDE/FORMETEROL FUMARATE 160/4.5 mcg INHALER IH SCH ×2 (09:44→22:10)
[2022-01-18] MEDS: PANTOPRAZOLE 40 MG TABLET PO SCH (09:44)
[2022-01-18] MEDS: ACETAMINOPHEN 325 MG TABLET (FP) PO PRN (12:39)
[2022-01-19] MEDS: HEPARIN NA (PORCINE) 5,000 UNITS/ML 1ML VIAL SQ SCH ×2 (06:20→14:22)
[2022-01-19 09:11] VITALS: RESP 18
[2022-01-19] MEDS: BUDESONIDE/FORMETEROL FUMARATE 160/4.5 mcg INHALER IH SCH (09:38)
[2022-01-19] MEDS: ACETAMINOPHEN 325 MG TABLET (FP) PO PRN (09:39)
[2022-01-19] MEDS: PANTOPRAZOLE 40 MG TABLET PO SCH (09:39)
[2022-01-19 18:27] VITALS: BP 160/106; PULSE 94; TEMP 98.7
[2022-01-19] MEDS ORDERED: ROSUVASTATIN CA 10 MG TABLET PO SCH (22:00)
== END 2022-01-19 19:29 | disposition home or self-care (01) ==
LOC: JER 12:56 → JERBED 17:41 → J4W 20:18
PROVIDERS: ADMIT Family Medicine; ATTEND Family Medicine
PROC: 3E033NZ Introduction of Analgesics, Hypnotics, Sedatives into Peripheral Vein, Percutaneous Approach (ICD-10-PCS; principal; 2022-01-17)
PROC: 3E023GC Introduction of Other Therapeutic Substance into Muscle, Percutaneous Approach (ICD-10-PCS; 2022-01-17)
DX: J45.909 Unspecified asthma, uncomplicated (principal); Z91.013 Allergy to seafood; E66.8 Other obesity; Z68.30 Body mass index [BMI] 30.0-30.9, adult; Z86.73 Personal history of transient ischemic attack (TIA), and cerebral infarction without residual deficits; G43.909 Migraine, unspecified, not intractable, without status migrainosus; Z90.49 Acquired absence of other specified parts of digestive tract; Z87.891 Personal history of nicotine dependence
CPT/HCPCS: 36415; 71046-TC-FY; 80053; 80061; 82550; 83036; 83735; 83880; 84484; 85025; 85379; 85610; 85730; 93005; 93010; 93351; 93971-TC; 96372; 96374; 99285-25; C9803-CS; G0378; J1644; U0003; U0005

== ENCOUNTER 2022-03-06 15:40 | Emergency (ER) | payer OTHER ==
[2022-03-06 16:07] VITALS: BP 91/63; PULSE 90; RESP 18; TEMP 98; BMI 46.3
== END 2022-03-06 16:47 | disposition home or self-care (01) ==
LOC: JERFT 15:40
DX: H60.392 Other infective otitis externa, left ear (principal); H92.02 Otalgia, left ear
CPT/HCPCS: 99281-25

== ENCOUNTER 2022-04-25 09:36 | Observation (INO) | payer OTHER ==
[2022-04-25] MEDS ORDERED: predniSONE 20 MG TABLET (UD) PO ONE (10:49)
[2022-04-25] MEDS ORDERED: SODIUM CHLORIDE 1,000 ML IV STA (10:50)
[2022-04-25] MEDS ORDERED: MAGNESIUM SULF 50% (8.12 MEQ/2 ML-1 GM VIAL) IVPB ONE (10:50)
[2022-04-25] MEDS ORDERED: ALBUTEROL SO4 2.5/IPRATROPIUM 0.5 INH SOL 3 ML VIAL.NEB. NEB ONE ×2 (11:26→23:27)
[2022-04-25] MEDS: ALBUTEROL SO4 2.5/IPRATROPIUM 0.5 INH SOL 3 ML VIAL.NEB. NEB SCH ×5 (11:38→23:41)
[2022-04-25] MEDS ORDERED: predniSONE 20 MG TABLET (UD) ONE (11:41)
[2022-04-25 11:51] LABS: BASO % 0.4 % (0-2.0); EOS % 1.5 % (0-4.5); HEMATOCRIT 40.3 % (32.4-45.2); HEMOGLOBIN 13.3 GM/dL (10.7-15.3); LYMPH % 26.8 % (8-40); MCH 27.3 pg (25.7-33.7); MEAN CELL VOLUME 82.8 fl (80-96); MEAN PLT VOLUME 7.5 fl (7.5-11.1); MONO % 5.9 % (3.8-10.2); NEUT % 65.4 % (42.8-82.8); PLATELET COUNT 274 10^3/uL (134-434); RBC 4.87 M/mm3 (3.60-5.2); RDW 14.4 % (11.6-15.6); WHITE BLOOD COUNT 8.9 K/mm3 (4.0-10.0)
[2022-04-25 12:08] LABS: CHLORIDE 104 mmol/L (98-107); SODIUM 141 mmol/L (136-145)
[2022-04-25 12:10] LABS: ALBUMIN 3.2 g/dl (3.4-5.0); ANION GAP 9 MMOL/L (8-16); BLOOD UREA NITROGEN 7.4 mg/dL (7-18); CALCIUM 8.6 mg/dL (8.5-10.1); CO2 28 mmol/L (21-32); GLUCOSE,RANDOM 85 mg/dL (74-106)
[2022-04-25 12:13] LABS: CREATININE 0.7 mg/dL (0.55-1.3); SGPT/ALT 28 U/L (13-61)
[2022-04-25 12:15] LABS: BILIRUBIN,TOTAL 0.4 mg/dL (0.2-1)
[2022-04-25 12:16] LABS: ALK PHOS 88 U/L (45-117)
[2022-04-25 12:23] LABS: SGOT/AST 45 U/L (15-37)
[2022-04-25] MEDS ORDERED: MAGNESIUM 1GM/D5W - 1 GM/100 ML IVPB IVPB ONE (12:36)
[2022-04-25] MEDS: ALBUTEROL SO4 0.083% IH SOL 2.5 MG/3 ML VIAL.NEB. NEB SCH ×2 (13:12→14:02)
[2022-04-25] MEDS ORDERED: diazePAM CARPU-JECT 10 MG/2 ML DISP.SYRIN ONE (13:29)
[2022-04-25] MEDS ORDERED: ALBUTEROL SO4 0.5 % INH SOLN 2.5 MG/0.5 ML VIAL.NEB. NEB PRN (13:39)
[2022-04-25] MEDS ORDERED: ACETAMINOPHEN 325 MG TABLET (FP) PO ONE (15:13)
[2022-04-25] MEDS ORDERED: ACETAMINOPHEN 325 MG TABLET (FP) ONE (15:19)
[2022-04-25] MEDS ORDERED: FAMOTIDINE 20 MG TABLET ONE (15:19)
[2022-04-25] MEDS: FAMOTIDINE 20 MG TABLET PO SCH (15:22)
[2022-04-25] MEDS: OSELTAMIVIR PHOSPHATE 75 MG CAPSULE PO SCH ×2 (15:23→23:41)
[2022-04-25] MEDS ORDERED: methylPREDNISolone NA SUCC 40 MG/1 ML VIAL ONE (23:27)
[2022-04-25] MEDS: methylPREDNISolone NA SUCC 40 MG/1 ML VIAL IVPUSH SCH (23:41)
[2022-04-26] MEDS: BUDESONIDE/FORMETEROL FUMARATE 160/4.5 mcg INHALER IH SCH ×3 (01:41→22:34)
[2022-04-26] MEDS: ALBUTEROL SO4 2.5/IPRATROPIUM 0.5 INH SOL 3 ML VIAL.NEB. NEB SCH ×4 (07:56→22:34)
[2022-04-26] MEDS ORDERED: ENOXAPARIN NA (PORCINE) 40 MG/0.4 ML DISP.SYRIN SQ ONE (10:37)
[2022-04-26] MEDS ORDERED: FAMOTIDINE 20 MG TABLET ONE (10:37)
[2022-04-26] MEDS ORDERED: methylPREDNISolone NA SUCC 40 MG/1 ML VIAL ONE ×2 (10:38→18:37)
[2022-04-26] MEDS: OSELTAMIVIR PHOSPHATE 75 MG CAPSULE PO SCH ×2 (10:56→22:34)
[2022-04-26] MEDS: FAMOTIDINE 20 MG TABLET PO SCH (10:56)
[2022-04-26] MEDS: methylPREDNISolone NA SUCC 40 MG/1 ML VIAL IVPUSH SCH ×3 (10:56→18:39)
[2022-04-26] MEDS: ENOXAPARIN NA (PORCINE) 40 MG/0.4 ML DISP.SYRIN SQ SCH (10:56)
[2022-04-26] MEDS ORDERED: ALBUTEROL SO4 2.5/IPRATROPIUM 0.5 INH SOL 3 ML VIAL.NEB. NEB ONE ×2 (18:37→22:14)
[2022-04-27] MEDS ORDERED: methylPREDNISolone NA SUCC 40 MG/1 ML VIAL ONE ×3 (03:20→17:40)
[2022-04-27] MEDS: methylPREDNISolone NA SUCC 40 MG/1 ML VIAL IVPUSH SCH ×3 (03:35→17:40)
[2022-04-27] MEDS: ALBUTEROL SO4 2.5/IPRATROPIUM 0.5 INH SOL 3 ML VIAL.NEB. NEB SCH ×4 (09:00→19:49)
[2022-04-27] MEDS ORDERED: ALBUTEROL SO4 2.5/IPRATROPIUM 0.5 INH SOL 3 ML VIAL.NEB. NEB ONE ×2 (09:23→13:15)
[2022-04-27] MEDS ORDERED: FAMOTIDINE 20 MG TABLET ONE (09:24)
[2022-04-27] MEDS ORDERED: OSELTAMIVIR PHOSPHATE 75 MG CAPSULE ONE (09:24)
[2022-04-27] MEDS ORDERED: ENOXAPARIN NA (PORCINE) 40 MG/0.4 ML DISP.SYRIN SQ ONE (09:24)
[2022-04-27] MEDS: BUDESONIDE/FORMETEROL FUMARATE 160/4.5 mcg INHALER IH SCH ×2 (10:10→21:40)
[2022-04-27] MEDS: FAMOTIDINE 20 MG TABLET PO SCH (10:10)
[2022-04-27] MEDS: OSELTAMIVIR PHOSPHATE 75 MG CAPSULE PO SCH ×2 (10:10→21:40)
[2022-04-27] MEDS: ENOXAPARIN NA (PORCINE) 40 MG/0.4 ML DISP.SYRIN SQ SCH (10:10)
[2022-04-27 19:43] VITALS: BMI 44.6
[2022-04-28] MEDS: methylPREDNISolone NA SUCC 40 MG/1 ML VIAL IVPUSH SCH ×2 (01:56→09:56)
[2022-04-28] MEDS: ALBUTEROL SO4 2.5/IPRATROPIUM 0.5 INH SOL 3 ML VIAL.NEB. NEB SCH ×2 (08:31→12:04)
[2022-04-28] MEDS: FAMOTIDINE 20 MG TABLET PO SCH (09:55)
[2022-04-28] MEDS: BUDESONIDE/FORMETEROL FUMARATE 160/4.5 mcg INHALER IH SCH (09:56)
[2022-04-28] MEDS: OSELTAMIVIR PHOSPHATE 75 MG CAPSULE PO SCH (09:56)
[2022-04-28] MEDS: ENOXAPARIN NA (PORCINE) 40 MG/0.4 ML DISP.SYRIN SQ SCH (09:58)
[2022-04-28 11:21] VITALS: BP 120/74; PULSE 63; RESP 20; TEMP 97.4
== END 2022-04-28 14:28 | disposition home or self-care (01) ==
LOC: JER 09:36 → INTOOBSV 13:25 → JERBED 13:25 → J6S 04-27 18:25
PROVIDERS: ADMIT Internal Medicine; ATTEND Internal Medicine
PROC: 3E0F7GC Introduction of Other Therapeutic Substance into Respiratory Tract, Via Natural or Artificial Opening (ICD-10-PCS; principal; 2022-04-25)
PROC: 3E023GC Introduction of Other Therapeutic Substance into Muscle, Percutaneous Approach (ICD-10-PCS; 2022-04-25)
PROC: 3E033GC Introduction of Other Therapeutic Substance into Peripheral Vein, Percutaneous Approach (ICD-10-PCS; 2022-04-25)
PROC: 3E0337Z Introduction of Electrolytic and Water Balance Substance into Peripheral Vein, Percutaneous Approach (ICD-10-PCS; 2022-04-25)
DX: J45.901 Unspecified asthma with (acute) exacerbation (principal); J10.1 Influenza due to other identified influenza virus with other respiratory manifestations; E66.01 Morbid (severe) obesity due to excess calories; Z68.41 Body mass index [BMI] 40.0-44.9, adult; Z91.013 Allergy to seafood; R06.00 Dyspnea, unspecified
CPT/HCPCS: 0241U-QW; 36415; 71046-TC-FY; 80053; 84484; 85025; 93005; 93010; 94640; 96361; 96372; 96374; 96375; 96376; 99291; G0378

== ENCOUNTER 2023-03-25 09:59 | Emergency (ER) | payer OTHER ==
[2023-03-25 10:09] VITALS: BP 139/73; PULSE 88; RESP 20; TEMP 98; BMI 44.4
[2023-03-25] MEDS ORDERED: DEXAMETHASONE SOD PHOSPHATE 10 MG/1 ML VIAL PO ONE (11:54)
[2023-03-25] MEDS ORDERED: IBUPROFEN 600 MG TABLET (FP) PO ONE ×2 (11:55→11:59)
[2023-03-25] MEDS ORDERED: DEXAMETHASONE SOD PHOSPHATE 10 MG/1 ML VIAL ONE (11:59)
[2023-03-25] MEDS ORDERED: ONDANSETRON *ODT* 4 MG TABLET ONE (12:00)
[2023-03-25] MEDS ORDERED: ONDANSETRON *ODT* 4 MG TABLET SL ONE (12:01)
== END 2023-03-25 12:35 | disposition home or self-care (01) ==
LOC: JERFT 09:59
PROC: 3E033GC Introduction of Other Therapeutic Substance into Peripheral Vein, Percutaneous Approach (ICD-10-PCS; principal; 2023-03-25)
DX: H92.03 Otalgia, bilateral (principal); R09.81 Nasal congestion; R51.9 Headache, unspecified; R59.0 Localized enlarged lymph nodes; J34.89 Other specified disorders of nose and nasal sinuses; H66.91 Otitis media, unspecified, right ear; H60.91 Unspecified otitis externa, right ear
CPT/HCPCS: 99284-25; J1100; Q0162

== ENCOUNTER 2023-04-27 11:02 | Inpatient (IN) | payer OTHER ==
[2023-04-27] MEDS ORDERED: ACETAMINOPHEN 1000 MG/100 ML BAG IVPB ONE (12:09)
[2023-04-27] MEDS ORDERED: SODIUM CHLORIDE 0.9% 500 ML INFUS.BAG IV ONE (12:09)
[2023-04-27] MEDS ORDERED: methylPREDNISolone NA SUCC 125 MG/2 ML VIAL IVPUSH ONE (12:09)
[2023-04-27] MEDS ORDERED: MAGNESIUM SULF 50% (8.12 MEQ/2 ML-1 GM VIAL) IVPB ONE (12:09)
[2023-04-27] MEDS: ALBUTEROL SO4 2.5/IPRATROPIUM 0.5 INH SOL 3 ML VIAL.NEB. NEB SCH ×5 (12:17→20:19)
[2023-04-27] MEDS ORDERED: ACETAMINOPHEN INJECTION 100 ML IVPB ONE (12:43)
[2023-04-27] MEDS ORDERED: methylPREDNISolone NA SUCC 125 MG/2 ML VIAL ONE (12:44)
[2023-04-27] MEDS ORDERED: MAGNESIUM SULFATE IN WATER 2 GM/50 ML IVPB IVPB ONE (12:44)
[2023-04-27 12:48] LABS: BASO % 0.6 % (0-2.0); EOS % 2.9 % (0-4.5); HEMATOCRIT 39.3 % (32.4-45.2); HEMOGLOBIN 12.8 GM/dL (10.7-15.3); LYMPH % 19.1 % (8-40); MCH 27.3 pg (25.7-33.7); MCHC 32.5 g/dl (32.0-36.0); MEAN CELL VOLUME 83.9 fl (80-96); MEAN PLT VOLUME 7.3 fl (7.5-11.1); MONO % 3.8 % (3.8-10.2); NEUT % 73.6 % (42.8-82.8); PLATELET COUNT 306 10^3/uL (134-434); RBC 4.69 M/mm3 (3.60-5.2); RDW 13.9 % (11.6-15.6); WHITE BLOOD COUNT 10.6 K/mm3 (4.0-10.0)
[2023-04-27 13:10] LABS: ALBUMIN 3.4 g/dl (3.4-5.0); BLOOD UREA NITROGEN 5.7 mg/dL (7-18); CALCIUM 8.6 mg/dL (8.5-10.1)
[2023-04-27 13:13] LABS: CREATININE 0.7 mg/dL (0.55-1.3)
[2023-04-27 13:14] LABS: BILIRUBIN,TOTAL 0.4 mg/dL (0.2-1)
[2023-04-27] MEDS: ALBUTEROL SO4 0.083% IH SOL 2.5 MG/3 ML VIAL.NEB. NEB SCH (15:46)
[2023-04-27] MEDS ORDERED: METOCLOPRAMIDE HCL INJECTION 10 MG/2 ML VIAL IVPUSH ONE (15:48)
[2023-04-27] MEDS ORDERED: METOCLOPRAMIDE HCL INJECTION 10 MG/2 ML VIAL ONE (16:05)
[2023-04-27] MEDS ORDERED: ACETAMINOPHEN 325 MG TABLET (FP) PO PRN (16:26)
[2023-04-27] MEDS ORDERED: ALBUTEROL SO4 0.083% IH SOL 2.5 MG/3 ML VIAL.NEB. NEB ONE (16:26)
[2023-04-27 18:02] VITALS: BMI 47.5
[2023-04-27] MEDS: methylPREDNISolone NA SUCC 40 MG/1 ML VIAL IVPUSH SCH (18:20)
[2023-04-27] MEDS ORDERED: FLU VACCINE (FLULAVAL) PF 60 MCG/0.5 ML SYRINGE 2023-2024 IM ONE (20:00)
[2023-04-27] MEDS ORDERED: CEFTRIAXONE 1 GM in DEXTROSE 5%-WATER - 50 ML IVPB ONE ×2 (22:53→22:56)
[2023-04-28] MEDS: methylPREDNISolone NA SUCC 40 MG/1 ML VIAL IVPUSH SCH ×3 (01:33→17:44)
[2023-04-28] MEDS: ALBUTEROL SO4 2.5/IPRATROPIUM 0.5 INH SOL 3 ML VIAL.NEB. NEB SCH ×4 (08:00→20:50)
[2023-04-28 09:41] LABS: HEMATOCRIT 37.9 % (32.4-45.2); HEMOGLOBIN 12.7 GM/dL (10.7-15.3); MCH 27.7 pg (25.7-33.7); MCHC 33.4 g/dl (32.0-36.0); MEAN CELL VOLUME 82.9 fl (80-96); MEAN PLT VOLUME 7.9 fl (7.5-11.1); PLATELET COUNT 365 10^3/uL (134-434); RBC 4.57 M/mm3 (3.60-5.2); RDW 13.8 % (11.6-15.6); WHITE BLOOD COUNT 19.3 K/mm3 (4.0-10.0)
[2023-04-28 10:06] LABS: POTASSIUM 4.4 mmol/L (3.5-5.1)
[2023-04-28] MEDS: AZITHROMYCIN IVPB 500 MG/250 ML BAG IVPB SCH (10:16)
[2023-04-28 10:58] LABS: BLOOD UREA NITROGEN 7.8 mg/dL (7-18); MAGNESIUM 2.2 mg/dL (1.8-2.4)
[2023-04-28 11:01] LABS: CREATININE 0.9 mg/dL (0.55-1.3)
[2023-04-28 12:13] LABS: ANISOCYTOSIS 2+; MACROCYTOSIS 0
[2023-04-28] MEDS: BUDESONIDE/FORMETEROL FUMARATE 160/4.5 mcg INHALER IH SCH (21:35)
[2023-04-29] MEDS: methylPREDNISolone NA SUCC 40 MG/1 ML VIAL IVPUSH SCH ×3 (01:30→18:10)
[2023-04-29] MEDS: ALBUTEROL SO4 2.5/IPRATROPIUM 0.5 INH SOL 3 ML VIAL.NEB. NEB SCH ×4 (07:15→20:47)
[2023-04-29] MEDS: AZITHROMYCIN IVPB 500 MG/250 ML BAG IVPB SCH (09:16)
[2023-04-29] MEDS: BUDESONIDE/FORMETEROL FUMARATE 160/4.5 mcg INHALER IH SCH ×2 (09:19→21:35)
[2023-04-29 09:29] LABS: HEMATOCRIT 38.4 % (32.4-45.2); HEMOGLOBIN 12.4 GM/dL (10.7-15.3); MCH 27.3 pg (25.7-33.7); MCHC 32.3 g/dl (32.0-36.0); MEAN CELL VOLUME 84.3 fl (80-96); MEAN PLT VOLUME 7.8 fl (7.5-11.1); PLATELET COUNT 399 10^3/uL (134-434); RBC 4.55 M/mm3 (3.60-5.2); RDW 14.2 % (11.6-15.6); WHITE BLOOD COUNT 26.3 K/mm3 (4.0-10.0)
[2023-04-29 09:57] LABS: POTASSIUM 4.4 mmol/L (3.5-5.1)
[2023-04-29 10:30] LABS: ALBUMIN 3.4 g/dl (3.4-5.0); BLOOD UREA NITROGEN 11.9 mg/dL (7-18)
[2023-04-29 10:33] LABS: CREATININE 0.8 mg/dL (0.55-1.3)
[2023-04-29 10:34] LABS: BILIRUBIN,TOTAL 0.3 mg/dL (0.2-1)
[2023-04-29 12:10] LABS: ANISOCYTOSIS 0; HELMET CELLS 0; HOWELL-JOLLY BODIES 0; MACROCYTOSIS 0; OVALOCYTE 0; ROULEAU 0; SICKELED CELLS 0; TARGET CELLS 0; TEAR DROP CELLS 0; TOXIC GRANULATION 0
[2023-04-30] MEDS: methylPREDNISolone NA SUCC 40 MG/1 ML VIAL IVPUSH SCH ×2 (01:35→09:13)
[2023-04-30] MEDS: ALBUTEROL SO4 2.5/IPRATROPIUM 0.5 INH SOL 3 ML VIAL.NEB. NEB SCH ×4 (08:50→20:27)
[2023-04-30] MEDS: AZITHROMYCIN IVPB 500 MG/250 ML BAG IVPB SCH (09:10)
[2023-04-30] MEDS: BUDESONIDE/FORMETEROL FUMARATE 160/4.5 mcg INHALER IH SCH ×2 (09:13→21:28)
[2023-04-30 11:13] LABS: POTASSIUM 4.3 mmol/L (3.5-5.1)
[2023-04-30 11:17] LABS: CALCIUM 8.8 mg/dL (8.5-10.1)
[2023-04-30 11:21] LABS: CREATININE 0.8 mg/dL (0.55-1.3)
[2023-04-30 12:14] LABS: HEMATOCRIT 37.2 % (32.4-45.2); HEMOGLOBIN 12.4 GM/dL (10.7-15.3); MCH 27.8 pg (25.7-33.7); MCHC 33.2 g/dl (32.0-36.0); MEAN CELL VOLUME 83.7 fl (80-96); MEAN PLT VOLUME 7.9 fl (7.5-11.1); PLATELET COUNT 366 10^3/uL (134-434); RBC 4.45 M/mm3 (3.60-5.2); RDW 14.5 % (11.6-15.6); WHITE BLOOD COUNT 20.8 K/mm3 (4.0-10.0)
[2023-04-30 13:55] LABS: ANISOCYTOSIS 0; HELMET CELLS 0; HOWELL-JOLLY BODIES 0; MACROCYTOSIS 0; OVALOCYTE 0; ROULEAU 0; SICKELED CELLS 0; TARGET CELLS 0; TEAR DROP CELLS 0; TOXIC GRANULATION 0
[2023-04-30] MEDS: predniSONE 20 MG TABLET (UD) PO SCH (17:20)
[2023-05-01] MEDS: ALBUTEROL SO4 2.5/IPRATROPIUM 0.5 INH SOL 3 ML VIAL.NEB. NEB SCH ×4 (08:30→20:50)
[2023-05-01] MEDS: AZITHROMYCIN IVPB 500 MG/250 ML BAG IVPB SCH (09:25)
[2023-05-01] MEDS: predniSONE 20 MG TABLET (UD) PO SCH (09:25)
[2023-05-01] MEDS: BUDESONIDE/FORMETEROL FUMARATE 160/4.5 mcg INHALER IH SCH ×2 (09:26→21:21)
[2023-05-01 14:32] VITALS: RESP 18
[2023-05-02] MEDS ORDERED: PANTOPRAZOLE 40 MG TABLET PO ONE (00:42)
[2023-05-02] MEDS: ALBUTEROL SO4 2.5/IPRATROPIUM 0.5 INH SOL 3 ML VIAL.NEB. NEB SCH ×3 (08:22→15:49)
[2023-05-02] MEDS: BUDESONIDE/FORMETEROL FUMARATE 160/4.5 mcg INHALER IH SCH (09:33)
[2023-05-02] MEDS: predniSONE 20 MG TABLET (UD) PO SCH (09:33)
[2023-05-02] MEDS ORDERED: diphenhydrAMINE HCL 25 MG CAPSULE (FP) PO PRN (12:43)
[2023-05-02 14:14] VITALS: BP 137/60; PULSE 85; TEMP 97.9
== END 2023-05-02 15:55 | disposition home or self-care (01) | DRG 141 ==
LOC: JER 11:02 → JERBED 16:17 → OBSVTOIN 16:19 → J6S 17:35
PROVIDERS: ADMIT Internal Medicine; ATTEND Internal Medicine
DX: J45.41 Moderate persistent asthma with (acute) exacerbation (principal); G47.33 Obstructive sleep apnea (adult) (pediatric); E66.01 Morbid (severe) obesity due to excess calories; Z68.42 Body mass index [BMI] 45.0-49.9, adult; E78.5 Hyperlipidemia, unspecified
CPT/HCPCS: 0241U-QW; 36415; 71045-TC-FY; 80048; 80053; 83735; 85025; 87040; 87086; 87633; 90686; 93005; 93010; 94640; 99285-25; G0008; G0378

== ENCOUNTER 2024-07-04 12:24 | Inpatient (IN) | payer OTHER ==
[2024-07-04] MEDS ORDERED: ALBUTEROL SO4 2.5/IPRATROPIUM 0.5 INH SOL 3 ML VIAL.NEB. NEB ONE (13:33)
[2024-07-04] MEDS: ALBUTEROL SO4 2.5/IPRATROPIUM 0.5 INH SOL 3 ML VIAL.NEB. NEB ONE (14:02)
[2024-07-04 14:05] LABS: BASO % 0.2 % (0-2.0); EOS % 1.8 % (0-4.5); HEMATOCRIT 38.4 % (32.4-45.2); HEMOGLOBIN 12.1 GM/dL (10.7-15.3); LYMPH % 27.4 % (8-40); MCH 26.4 pg (25.7-33.7); MCHC 31.5 g/dl (32.0-36.0); MEAN CELL VOLUME 83.8 fl (80-96); MEAN PLT VOLUME 7.6 fl (7.5-11.1); MONO % 5.1 % (3.8-10.2); NEUT % 65.5 % (42.8-82.8); PLATELET COUNT 341 10^3/uL (134-434); RBC 4.59 M/mm3 (3.60-5.2); RDW 14.6 % (11.6-15.6); WHITE BLOOD COUNT 15.5 K/mm3 (4.0-10.0)
[2024-07-04 14:26] LABS: POTASSIUM 4.1 mmol/L (3.5-5.1)
[2024-07-04 14:28] LABS: BLOOD UREA NITROGEN 8.6 mg/dL (7-18)
[2024-07-04 14:29] LABS: ALBUMIN 3.4 g/dl (3.4-5.0)
[2024-07-04 14:32] LABS: CREATININE 0.7 mg/dL (0.55-1.3)
[2024-07-04 14:33] LABS: BILIRUBIN,TOTAL 0.6 mg/dL (0.2-1); TOT PROT 6.8 g/dl (6.4-8.2)
[2024-07-04] MEDS ORDERED: ACETAMINOPHEN INJECTION 100 ML ONE (15:10)
[2024-07-04] MEDS: ACETAMINOPHEN 1000 MG/100 ML BAG IVPB ONE (15:18)
[2024-07-04] MEDS ORDERED: ALBUTEROL SO4 0.083% IH SOL 2.5 MG/3 ML VIAL.NEB. NEB PRN (17:36)
[2024-07-04] MEDS ORDERED: ACETAMINOPHEN 500 MG TABLET (FP) PO PRN (17:45)
[2024-07-04] MEDS ORDERED: guaiFENesin 200 MG/10 ML 10 ML UNIT-DOSE CUPS PO PRN (17:45)
[2024-07-04] MEDS ORDERED: predniSONE 20 MG TABLET (UD) ONE (17:56)
[2024-07-04] MEDS: predniSONE 20 MG TABLET (UD) PO SCH (18:02)
[2024-07-04] MEDS: ALBUTEROL SO4 0.083% IH SOL 2.5 MG/3 ML VIAL.NEB. NEB SCH (19:29)
[2024-07-04 19:35] VITALS: BMI 41.8
[2024-07-04] MEDS: HEPARIN NA (PORCINE) 5,000 UNITS/ML 1ML VIAL SQ SCH (21:15)
[2024-07-04] MEDS: MONTELUKAST NA 10 MG TABLET PO SCH (21:16)
[2024-07-05] MEDS: LEVOTHYROXINE NA 25 MCG TABLET (FP) PO SCH (06:26)
[2024-07-05] MEDS: amLODIPine BESYLATE 5 MG TABLET (FP) PO SCH (09:52)
[2024-07-06 11:12] LABS: BASO % 0.1 % (0-2.0); EOS % 0.3 % (0-4.5); HEMATOCRIT 35.5 % (32.4-45.2); HEMOGLOBIN 11.7 GM/dL (10.7-15.3); LYMPH % 33.4 % (8-40); MCHC 32.9 g/dl (32.0-36.0); MEAN CELL VOLUME 82.1 fl (80-96); MEAN PLT VOLUME 7.7 fl (7.5-11.1); MONO % 4.9 % (3.8-10.2); NEUT % 61.3 % (42.8-82.8); PLATELET COUNT 314 10^3/uL (134-434); RBC 4.32 M/mm3 (3.60-5.2); RDW 14.8 % (11.6-15.6); WHITE BLOOD COUNT 18.3 K/mm3 (4.0-10.0)
[2024-07-06 11:26] LABS: POTASSIUM 3.8 mmol/L (3.5-5.1)
[2024-07-06 11:32] LABS: CHOLESTEROL 192 mg/dL (50-200); LDL CHOLESTEROL (ONLY SJRH) 118 mg/dL (5-100)
[2024-07-06] MEDS ORDERED: BENZONATATE 200 MG CAPSULE PO PRN (11:32)
[2024-07-06 11:35] LABS: HDL CHOLESTEROL 54 mg/dL (40-60)
[2024-07-06 11:37] LABS: BLOOD UREA NITROGEN 11.4 mg/dL (7-18)
[2024-07-06 11:38] LABS: CALCIUM 9.2 mg/dL (8.5-10.1)
[2024-07-06 11:39] LABS: ALBUMIN 3.2 g/dl (3.4-5.0)
[2024-07-06 11:41] LABS: CREATININE 0.6 mg/dL (0.55-1.3)
[2024-07-06 11:42] LABS: BILIRUBIN,TOTAL 0.4 mg/dL (0.2-1); PHOSPHOROUS 3.4 mg/dL (2.5-4.9); TOT PROT 6.5 g/dl (6.4-8.2)
[2024-07-06] MEDS: FLUTICASONE PROP 0.05% 16 GM NASAL SPRAY NS SCH (12:30)
[2024-07-06] MEDS: AZITHROMYCIN 250 MG TABLET PO ONE (12:30)
[2024-07-06] MEDS: ALBUTEROL SO4 2.5/IPRATROPIUM 0.5 INH SOL 3 ML VIAL.NEB. NEB SCH (15:35)
[2024-07-06] MEDS: methylPREDNISolone NA SUCC 40 MG/1 ML VIAL IVPUSH ONE (15:40)
[2024-07-06] MEDS: POLYETHYLENE GLYCOL (HEALTHYLAX) 3350 17 GM PACKET PO SCH (15:41)
[2024-07-06] MEDS: ASPIRIN COATED 81 MG TABLET.EC PO SCH (15:41)
[2024-07-06] MEDS: BUDESONIDE/FORMETEROL FUMARATE 160/4.5 mcg INHALER IH SCH (15:42)
[2024-07-06] MEDS: methylPREDNISolone NA SUCC 40 MG/1 ML VIAL IVPUSH SCH (18:33)
[2024-07-06 20:51] VITALS: RESP 18
[2024-07-06] MEDS: ATORVASTATIN CA 80 MG TABLET (FP) PO SCH (21:19)
[2024-07-07 09:10] LABS: HEMATOCRIT 40.5 % (32.4-45.2); HEMOGLOBIN 12.7 GM/dL (10.7-15.3); MCH 26.2 pg (25.7-33.7); MCHC 31.5 g/dl (32.0-36.0); MEAN CELL VOLUME 83.3 fl (80-96); MEAN PLT VOLUME 7.9 fl (7.5-11.1); PLATELET COUNT 351 10^3/uL (134-434); RBC 4.86 M/mm3 (3.60-5.2); RDW 14.9 % (11.6-15.6); WHITE BLOOD COUNT 22.4 K/mm3 (4.0-10.0)
[2024-07-07 09:31] LABS: POTASSIUM 4.4 mmol/L (3.5-5.1)
[2024-07-07 09:37] LABS: CALCIUM 9.4 mg/dL (8.5-10.1)
[2024-07-07 09:38] LABS: BLOOD UREA NITROGEN 11.7 mg/dL (7-18)
[2024-07-07 09:39] LABS: ALBUMIN 3.4 g/dl (3.4-5.0); MAGNESIUM 2.2 mg/dL (1.8-2.4)
[2024-07-07 09:41] LABS: CREATININE 0.7 mg/dL (0.55-1.3); PHOSPHOROUS 3.1 mg/dL (2.5-4.9)
[2024-07-07 09:43] LABS: BILIRUBIN,TOTAL 0.4 mg/dL (0.2-1); TOT PROT 7.2 g/dl (6.4-8.2)
[2024-07-07] MEDS: OSELTAMIVIR PHOSPHATE 75 MG CAPSULE PO SCH (10:08)
[2024-07-07] MEDS: AZITHROMYCIN 250 MG TABLET PO SCH (10:08)
[2024-07-07] MEDS: FLUTICASONE PROP 0.05% 16 GM NASAL SPRAY NS SCH (22:01)
[2024-07-07] MEDS: ATORVASTATIN CA 40 MG TABLET (FP) PO SCH (22:01)
[2024-07-08] MEDS: predniSONE 20 MG TABLET (UD) PO SCH (09:05)
[2024-07-08 10:14] VITALS: BP 134/74; PULSE 75; TEMP 97.5
== END 2024-07-08 16:08 | disposition home or self-care (01) | DRG 141 ==
LOC: JER 12:24 → JERBED 17:17 → J6S 18:35 → OBSVTOIN 07-06 10:35
PROVIDERS: ADMIT Internal Medicine; ATTEND Internal Medicine
DX: J45.901 Unspecified asthma with (acute) exacerbation (principal); Z68.41 Body mass index [BMI] 40.0-44.9, adult; E66.01 Morbid (severe) obesity due to excess calories; G47.33 Obstructive sleep apnea (adult) (pediatric); E03.9 Hypothyroidism, unspecified
CPT/HCPCS: 0241U-QW; 36415; 71045-TC-FY; 80053; 80061; 83735; 84100; 84484; 85025; 93005; 93010; 94640; 99285-25; G0378; J0131; J1644